=== PATIENT | male | born 1980 ===

== ENCOUNTER 2018-06-08 15:43 | Inpatient (IN) | payer MEDICAID | END 2018-06-14 15:45 | disposition home or self-care (01) | DRG 292 | LOC: C.ER 15:43 → C.9E 19:21 → C.3T 20:57 | PROC: 04CS3ZZ Extirpation of Matter from Left Posterior Tibial Artery, Percutaneous Approach (ICD-10-PCS; principal; 2018-06-11) | DX: E11.621 Type 2 diabetes mellitus with foot ulcer (principal); L02.612 Cutaneous abscess of left foot; L97.529 Non-pressure chronic ulcer of other part of left foot with unspecified severity; E11.51 Type 2 diabetes mellitus with diabetic peripheral angiopathy without gangrene; L03.032 Cellulitis of left toe; J45.909 Unspecified asthma, uncomplicated; I10 Essential (primary) hypertension; F17.200 Nicotine dependence, unspecified, uncomplicated; F12.90 Cannabis use, unspecified, uncomplicated ==